=== PATIENT | female | born 2000 | race Caucasian/White ===

== ENCOUNTER 2021-12-06 17:33 | Emergency (ER) | payer BC, OTHER ==
--- NOTE | 2021-12-06 19:13 | RAD REPORT ---
EXAM DESCRIPTION: RAD - Chest Single View - 12/06/2021 7:04 pm CLINICAL HISTORY: CHEST PAIN COMPARISON: No comparisons FINDINGS: Lines: None. Lungs: No evidence of edema or pneumonia. Pleural: No significant pleural effusions or pneumothorax. Cardiac: The heart size is within normal limits. Bones: No acute fractures. Other: IMPRESSION: No acute cardiopulmonary disease.
[2021-12-06] MEDS ORDERED: KETOROLAC 30 MG/ML INJ ONE (19:51)
[2021-12-06] MEDS ORDERED: CYCLOBENZAPRINE 10 MG TAB ONE (19:51)
[2021-12-06 20:47] LABS: Urine Blood 1+ (Negative); Urine Glucose Negative (Negative); Urine Protein Negative (Negative); Urine Specific Gravity 1.025 (1.005-1.030)
[2021-12-06 20:53] LABS: Absolute Lymphocytes (CBC) 2.7 K/uL (0.7-4.9); Hematocrit 41.5 % (36.0-45.0); Lymphocytes % 27.7 % (15.3-44.8); MCV 86.9 fL (80-100); MPV 9.2 fL (7.6-11.3); RBC Red Blood Cell Count 4.77 M/uL (3.86-4.86)
[2021-12-06 21:11] LABS: Troponin High Sensitivity 10.5 pg/mL (<58.9)
--- NOTE | 2021-12-06 21:53 | RAD REPORT ---
EXAM DESCRIPTION: CT - Chest For Pe Angio - 12/06/2021 9:45 pm CLINICAL HISTORY: Chest pain, shortness of breath COMPARISON: No comparisonsNo comparisons TECHNIQUE: Dynamically enhanced axial 3 mm thick images of the chest were obtained during administra tion of <100> mL Isovue 370 IV contrast. Coronal and oblique reconstruction images were generated and reviewed. Exam utilizes a protocol for optimal evaluation of pulmonary arterial tree. Maximum intensity projections 3D imaging was utilized All CT scans are performed using dose optimization technique as appropriate and may include automated exposure control or mA/KV adjustment according to patient size. FINDINGS: Chest Wall: No suspicious thyroid nodules or pathologic lymphadenopathy. Lungs: No acute abnormality. Pleura: No significant effusions or pneumothorax. Mediastinum/finesse: No pathologic lymphadenopathy. Pulmonary arteries/Aorta: No filling defect identified. No aortic aneurysm. Heart: No significant pericardial effusion. Normal heart size. Upper abdomen: No acute abnormality. Bones: No acute abnormality. IMPRESSION: Negative for pulmonary embolism. No acute findings in the chest.
[2021-12-06 22:13] LABS: Urine Specific Gravity/Preg 1.025 (1.005-1.030)
--- NOTE | 2021-12-06 22:33 | ER ---
Nurse's Notes [facility] Name: Victorina Scruggs Age: 21 yrs Sex: Female : 2000 Arrival Date: 12/06/2021 Time: 17:37 Bed 23 Private MD: Diagnosis: Chest pain, unspecified Presentation: 12/06 17:58 Chief complaint: Patient states: Yesterday afternoon had "a catch in my lung" L side. L ll1 arm tingling at times also. Coronavirus screen: Vaccine status: Patient reports being unvaccinated. Client denies travel out of the [place] in the last 14 days. At this time, the client does not indicate any symptoms associated with coronavirus-19. Ebola Screen: Patient denies travel to an Ebola-affected area in the 21 days before illness onset. Initial Sepsis Screen: Does the patient meet any 2 criteria? No. Patient's initial sepsis screen is negative. Does the patient have a suspected source of infection? No. Patient's initial sepsis screen is negative. Risk Assessment: Do you want to hurt yourself or someone else? Patient reports no desire to harm self or others. Onset of symptoms was December 05, 2021. 17:58 Method Of Arrival: Ambulatory ll1 17:58 Acuity: REBEL 3 ll1 Triage Assessment: 18:00 General: Appears uncomfortable, Behavior is calm, cooperative, appropriate for age. ll1 Pain: Complains of pain in L lung Quality of pain is described as aching, Aggravated by increased activity. Neuro: No deficits noted. Cardiovascular: No deficits noted. Respiratory: Reports shortness of breath pain with respiration. Musculoskeletal: Reports tingling L arm. 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 - Social history:: Smoking status: Reported history of juuling and/or vaping. Screenin:25 Abuse screen: Denies threats or abuse. Denies injuries from another. Nutritional lp1 screening: No deficits noted. Tuberculosis screening: No symptoms or risk factors identified. Fall Risk None identified. Assessment: 20:15 General: Appears in no apparent distress. Behavior is calm, cooperative, appropriate lp1 for age. Pain: Complains of pain in left lateral posterior chest and left lateral anterior chest Pain currently is 7 out of 10 on a pain scale. Quality of pain is described as aching. Neuro: Level of Consciousness is awake, alert, obeys commands, Oriented to person, place, time, situation. Cardiovascular: Patient's skin is warm and dry. Rhythm is regular. Respiratory: Respiratory effort is even, unlabored. GI: No signs and/or symptoms were reported involving the gastrointestinal system. : No signs and/or symptoms were reported regarding the genitourinary system. EENT: No signs and/or symptoms were reported regarding the EENT system. Derm: Skin is pink, warm \\T\\ dry. Musculoskeletal: No deficits noted. 21:26 Reassessment: Patient is alert, oriented x 3, equal unlabored respirations, skin lp1 warm/dry/pink. Patient reports some discomfort to left lateral chest area, aggravated with taking breath. 21:47 Reassessment: Patient returned from CT. lp1 22:33 Reassessment: Patient appears in no apparent distress at this time. Patient is alert, lp1 oriented x 3, equal unlabored respirations, skin warm/dry/pink. Vital Signs: 17:58 BP 110 / 82; Pulse 78; Resp 16; Temp 98.2; Pulse Ox 100% ; Height 5 ft. 4 in. (162.56 ll1 cm); 21:25 BP 108 / 68; Pulse 60; Resp 16; Pulse Ox 99% on R/A; lp1 22:51 BP 111 / 68; Pulse 58; Resp 16; Pulse Ox 99% on R/A; lp1 ED Course: 17:37 Patient arrived in ED. am2 17:44 Chirag Arevalo NP is PHCP. pm1 17:44 Mikhail Hanson MD is Attending Physician. pm1 18:00 Triage completed. ll1 18:00 Arm band placed on. ll1 19:06 XRAY Chest (1 view) In Process Unspecified. EDMS 19:34 Adore Del Toro, FRANC is Primary Nurse. lp1 20:15 Missed attempt(s): 20 gauge in left antecubital area. lp1 20:40 Inserted saline lock: 20 gauge in right antecubital area, using aseptic technique. By lp1 ED staff. 20:59 Notified Nurse Practitioner and/or Physician Odd Piece Checker of a critical lab result(s), nitesh DDimer [id number] Chirag Arevalo NP notified. 21:25 Patient has correct armband on for positive identification. lp1 21:25 No provider procedures requiring assistance completed. lp1 21:47 CT Chest For PE Angio In Process Unspecified. EDMS 22:51 IV discontinued, No redness/swelling at site. Pressure dressing applied. lp1 Administered Medications: 20:15 Drug: Flexeril (cyclobenzaprine) 10 mg Route: PO; lp1 22:51 Follow up: Response: Marked relief of symptoms lp1 21:15 Drug: Ketorolac 30 mg Route: IVP; Site: right antecubital; lp1 22:51 Follow up: Response: Marked relief of symptoms lp1 Medication: 21:25 VIS not applicable for this client. lp1 Outcome: 22:32 Discharge ordered by MD. pm1 22:52 Discharged to home ambulatory, with significant other. lp1 22:52 Condition: good 22:52 Discharge instructions given to patient, significant other, Instructed on discharge instructions, follow up and referral plans. medication usage, Demonstrated understanding of instructions, follow-up care, medications, Prescriptions given X 2. 22:53 Patient left the ED. lp1 Signatures: Dispatcher [employer] EDMS Jessica Lucia RN Adore Ruth RN RN lp1 Chirag Arevalo NP [employer] pm1 Anabel Sanabria 2 Bailey Murcia RN RN ll1 Corrections: (The following items were deleted from the chart) 18:02 17:58 Acuity: REBEL 4 ll1 ll1 22:52 21:25 BP 108 / 68; lp1 lp1
--- NOTE | 2021-12-06 22:33 | EDPHYS ---
Physician Documentation [facility] Name: Victorina Scruggs Age: 21 yrs Sex: Female : 2000 Arrival Date: 12/06/2021 Time: 17:37 Bed 23 Private MD: ED Physician Mikhail Hanson HPI: 12/06 19:47 This 21 yrs old Female presents to ER via Ambulatory with complaints of left lung pain, pm1 left arm tingling. 19:47 The patient or guardian reports chest pain that is located primarily in the left pm1 lateral anterior chest. The pain does not radiate. Associated signs and symptoms: Pertinent positives: left arm tingling, Pertinent negatives: abdominal pain, dizziness, headache, nausea, shortness of breath, vomiting. The chest pain is described as sharp. Duration: The patient or guardian reports a single episode, that is still ongoing. Modifying factors: The symptoms are alleviated by nothing. the symptoms are aggravated by movement, twisting torso. Severity of pain: in the emergency department the pain is unchanged. The patient has not experienced similar symptoms in the past. The patient has not recently seen a physician. 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 - Social history:: Smoking status: Reported history of juuling and/or vaping. ROS: 19:47 Constitutional: Negative for fever, chills, and weight loss. pm1 19:47 Respiratory: Negative for shortness of breath, cough, wheezing, and pleuritic chest pain, Abdomen/GI: Negative for abdominal pain, nausea, vomiting, diarrhea, and constipation, Back: Negative for injury and pain, MS/Extremity: Negative for injury and deformity, Skin: Negative for injury, rash, and discoloration, Neuro: Negative for headache, weakness, numbness, tingling, and seizure. 19:47 Cardiovascular: Positive for left lower lateral chest/rib pain, Negative for palpitations. 19:47 All other systems are negative. Exam: 19:47 Constitutional: This is a well developed, well nourished patient who is awake, alert, pm1 and in no acute distress. Head/Face: Normocephalic, atraumatic. 19:47 Back: No spinal tenderness. No costovertebral tenderness. Full range of motion. Skin: Warm, dry with normal turgor. Normal color with no rashes, no lesions, and no evidence of cellulitis. MS/ Extremity: Pulses equal, no cyanosis. Neurovascular intact. Full, normal range of motion. 19:47 Chest/axilla: Inspection: normal, Palpation: is normal, no crepitus, no tenderness. 19:47 Cardiovascular: Exam negative for acute changes, Rate: normal, Rhythm: regular, Pulses: no pulse deficits are appreciated, Heart sounds: normal, normal S1and S2, Edema: is not appreciated. 19:47 Respiratory: Exam negative for acute changes, respiratory distress, shortness of breath, Breath sounds: are clear throughout. 19:47 Abdomen/GI: Exam negative for acute changes, Inspection: abdomen appears normal, Palpation: abdomen is soft and non-tender, in all quadrants. 19:47 Neuro: Exam negative for acute changes, Orientation: is normal, Mentation: is normal, Motor: is normal, moves all fours. Vital Signs: 17:58 BP 110 / 82; Pulse 78; Resp 16; Temp 98.2; Pulse Ox 100% ; Height 5 ft. 4 in. (162.56 ll1 cm); 21:25 BP 108 / 68; Pulse 60; Resp 16; Pulse Ox 99% on R/A; lp1 22:51 BP 111 / 68; Pulse 58; Resp 16; Pulse Ox 99% on R/A; lp1 MDM: 18:03 Patient medically screened. pm1 19:47 Counseling: I had a detailed discussion with the patient and/or guardian regarding: pm1 radiology results. 19:57 Data reviewed: vital signs. Data interpreted: Pulse oximetry: on room air is 100 %. pm1 Interpretation: normal. 21:20 ED course: Elevated D-dimer. Explained to patient result. Therefore will get CT chest pm1 rule out PE. 22:31 Counseling: I had a detailed discussion with the patient and/or guardian regarding: the pm1 historical points, exam findings, and any diagnostic results supporting the discharge/admit diagnosis, lab results, radiology results, the need for outpatient follow up, to return to the emergency department if symptoms worsen or persist or if there are any questions or concerns that arise at home. 12/06 18:03 Order name: Basic Metabolic Panel; Complete Time: 21:18 pm1 12/06 18:03 Order name: CBC with Diff; Complete Time: 21:18 pm1 12/06 18:03 Order name: D-Dimer; Complete Time: 21:18 pm1 12/06 18:03 Order name: Troponin HS; Complete Time: 21:18 pm1 12/06 20:47 Order name: Urine Dipstick-Ancillary; Complete Time: 21:18 EDMS 12/06 20:54 Order name: Urine --Ancillary (enter results); Complete Time: 22:28 wm 12/06 18:03 Order name: XRAY Chest (1 view); Complete Time: 19:19 pm1 12/06 18:03 Order name: EKG; Complete Time: 18:06 pm1 12/06 18:03 Order name: Cardiac monitoring; Complete Time: 21:27 pm1 12/06 18:03 Order name: EKG - Nurse/Tech; Complete Time: 18:10 pm1 12/06 18:03 Order name: IV Saline Lock; Complete Time: 21:25 pm1 12/06 21:19 Order name: CT Chest For PE Angio; Complete Time: 22:28 pm1 12/06 18:03 Order name: Labs collected and sent; Complete Time: 21:25 pm1 12/06 18:03 Order name: O2 Per Protocol; Complete Time: 21:25 pm1 12/06 18:03 Order name: O2 Sat Monitoring; Complete Time: 21:25 pm1 12/06 18:03 Order name: Urine Dipstick-Ancillary (obtain specimen); Complete Time: 21:25 pm1 12/06 18:03 Order name: Urine Test (obtain specimen); Complete Time: 21:25 pm1 EC:11 Rate is 71 beats/min. Rhythm is regular, Normal Sinus Rhythm with No ectopy. QRS [place] pm1 is Normal. TN interval is normal. QRS interval is normal. QT interval is normal. No Q waves. T waves are Normal. No ST changes noted. Clinical impression: Normal ECG. Administered Medications: 20:15 Drug: Flexeril (cyclobenzaprine) 10 mg Route: PO; lp1 22:51 Follow up: Response: Marked relief of symptoms lp1 21:15 Drug: Ketorolac 30 mg Route: IVP; Site: right antecubital; lp1 22:51 Follow up: Response: Marked relief of symptoms lp1 Disposition: 12/07 21:47 Co-signature as Attending Physician, Mikhail Hanson MD. rn Disposition Summary: 12/06/21 22:32 Discharge Ordered Location: Home pm1 Problem: new pm1 Symptoms: have improved pm1 Condition: Stable pm1 Diagnosis - Chest pain, unspecified pm1 Followup: pm1 - With: Emergency Department - When: As needed - Reason: Worsening of condition Followup: pm1 - With: Private Physician - When: 2 - 3 days - Reason: Recheck today's complaints, Continuance of care, Re-evaluation by your physician Discharge Instructions: - Discharge Summary Sheet pm1 - Nonspecific Chest Pain, Adult pm1 Forms: - Work release form lp1 - Family Work Release lp1 - Medication Reconciliation Form pm1 - Thank You Letter pm1 - Antibiotic Education pm1 - Prescription Opioid Use pm1 Prescriptions: - Cyclobenzaprine 10 mg Oral Tablet - take 1 tablet by ORAL route every 8 hours As needed; 30 tablet; Refills: 0, pm1 Product Selection Permitted - Diclofenac Sodium 75 mg Oral tablet,delayed release (DR/EC) - take 1 tablet by ORAL route 2 times per day As needed; 30 tablet; Refills: 0, pm1 Product Selection Permitted Signatures: Dispatcher [employer] Mikhail Reyes MD MD rn Pena, Laura, RN RN lp1 Chirag Arevalo NP [employer] INS[employer] pm1 Bailey Murcia RN RN ll1
[2021-12-07 03:16] VITALS: TEMP 98.2
[2021-12-07 03:27] VITALS: O2SAT 99
[2021-12-07 03:30] VITALS: BP 111/68
--- NOTE | 2021-12-07 10:39 | EKG ---
Test Date: 2021-12-06 Test Time: 18:05:58 Battery Hand: WILMA MEASUREMENT RESULTS: Intervals: Rate: 71 HI: 176 QRSD: 74 QT: 384 QTc: 417 [place]: P: 65 HI: 176 QRS: 69 T: 50 INTERPRETIVE STATEMENTS: Normal sinus rhythm Normal ECG No previous ECG available for comparison Electronically Signed On 12-07-21 10:36:08 CDT by Gomez Archer
== END 2021-12-06 22:53 | disposition home or self-care (01) ==
LOC: ER 17:33
DX: R07.89 Other chest pain (principal); J45.909 Unspecified asthma, uncomplicated
CPT/HCPCS: 93005; 85025; 80048; 36415; 81025; 85379; 81003; 84484; 71275; 71045; Q9967; 96374; 99284